=== PATIENT | female | born 1995 | race African-American/Black ===

== ENCOUNTER 2017-03-29 15:09 | Emergency (ER) | payer OTHER ==
[~2017-03-29] VITALS: Ht 175.3 cm; Wt 76.5 kg
[2017-03-29 15:12] VITALS: BP 127/79; PULSE 117; TEMP 36.9; O2SAT 99; Ht 175.3 cm; Wt 76.5 kg
[2017-03-29] MEDS ORDERED: GELATIN SPONGE 12-7MM ONE (15:18)
--- NOTE | 2017-03-29 15:42 | EMERGENCY ROOM VISIT NOTE ---
History First contact with patient: 15:14 Chief Complaint: LACERATION/CUT (SUT/DERMABOND) Stated Complaint: LACERATION TO RIGHT THUMB-WORK RELATED INJURY History of Present Illness The patient is a 21 year old female who presents to the Emergency Room with complaints of a laceration to her right thumb approximate 1 hour prior to arrival. This injury happened at work while cutting food with a knife. The patient was able to control the bleeding with direct pressure, and rates her discomfort a 2 out of 10. The patient is [id number], and tetanus immunization is up-to-date. Review of Systems 6 system review was performed and was negative except for pertinent positives and negatives as indicated in history of present illness Past Medical/Surgical History Medical Problems: (1) No significant past medical history Surgical Problems: (1) Right clavicle fracture Family History FH: cancer FH: diabetes mellitus FH: heart disease FH: hypertension FH: seizures Social History Smoking Status: Never Smoker Alcohol Use: none Marital Status: single Housing Status: lives with family Occupation Status: employed Current/Historical Medications No Active Prescriptions or Reported Meds Physical Exam Vital Signs Date Time Temp Pulse Resp B/P (MAP) Pulse Ox O2 Delivery O2 Flow Rate FiO2 03/29/17 15:30 03/29/17 15:12 36.9 117 16 127/79 99 Room Air Physical Exam CONSTITUTIONAL: Healthy and well nourished. Alert and oriented X 3 with positive affect. HEENT: Normocephalic, atraumatic. Pupils equal, round and reactive. MUSCULOSKELETAL: Examination of the right thumb shows a subcentimeter diameter avulsion laceration over the radial margin of the digital pad. The laceration does not involve the nail. There is no significant active bleeding. The patient has no discomfort with range of motion of the IP joint. INTEGUMENTARY: No rash or other significant dermatologic conditions noted. NEUROLOGIC: No focal neurologic deficits noted. Right thumb tip is sensory intact. Medical Decision & Procedures Procedure A Gelfoam pressure dressing was applied by me after the wound was cleansed with normal saline. ED Course Patient history and physical exam were performed. Nurse's notes were reviewed. Vital signs were reviewed and were normal. A Gelfoam pressure dressing was applied. The patient was provided additional verbal and written wound care instructions. Ice and elevation as needed for swelling and pain. Ibuprofen or Tylenol if needed for additional pain relief. Return to the emergency department for any further wound concerns. The patient was happy with plan of care, voiced understanding of all discharge instructions, refused any analgesics while in the emergency department, and denied any significant discomfort at the time of discharge. Medical Decision Blood Pressure Screening Patient's blood pressure: Normal blood pressure Impression Primary Impression: Laceration of right thumb Additional Impression: Work related injury Departure Information Dispostion Home / Self-Care Prescriptions No Active Prescriptions or Reported Meds Forms HOME CARE DOCUMENTATION FORM, IMPORTANT VISIT INFORMATION Patient Instructions Counts Include 234 [facility] At [facility] Additional Instructions Keep dressing in place for 48 hrs, then remove. Soak foam in water until it falls off easily, then clean wound daily, cover with an antibiotic ointment and keep covered until it heals. Return for any signs of infection (increasing redness, swelling, drainage). Ice and elevate for swelling and pain. Ibuprofen 600 mg and/or Tylenol 1000 mg every 6 hrs as needed for pain. Problem Qualifiers Primary Impression: Laceration of right thumb Encounter type: initial encounter Damage to nail status: without damage Foreign body presence: without foreign body Qualified Codes: S61.011A - Laceration without foreign body of right thumb without damage to nail, initial encounter
== END 2017-03-29 15:31 | disposition home or self-care (01) ==
LOC: C.EDB 15:11 → C.EDD 15:31
DX: S61.011A Laceration without foreign body of right thumb without damage to nail, initial encounter (principal); W29.1XXA Contact with electric knife, initial encounter; Y93.G1 Activity, food preparation and clean up; Y99.0 Civilian activity done for income or pay; Z83.3 Family history of diabetes mellitus; Z82.49 Family history of ischemic heart disease and other diseases of the circulatory system; Z82.0 Family history of epilepsy and other diseases of the nervous system